=== PATIENT | male | born 1985 | race Hispanic/Latino ===

== ENCOUNTER 2017-08-19 06:10 | Day surgery (SDC) | payer OTHER ==
[2017-08-19] MEDS ORDERED: DIPRIVAN 200 MG/20 ML IV ONE (06:11)
[2017-08-19] MEDS ORDERED: Ketamine HCl 50 MG/ML IJ ONE (06:11)
[2017-08-19] MEDS ORDERED: Lactated Ringers 1,000 ML IV SCH (06:30)
[2017-08-19 08:38] VITALS: O2SAT 100
[2017-08-19 08:39] VITALS: BP 126/78; PULSE 77
--- NOTE | 2017-08-19 10:07 | OP ---
SURGERY DATE/TIME: 08/19/2017 0722 PREOPERATIVE DIAGNOSES: 1) Rectal bleeding. 2) Constipation. POSTOPERATIVE DIAGNOSIS: Normal colon. PROCEDURE: Colonoscopy. SURGEON: Dr. Montgomery. ANESTHESIA: MAC. Medications given by anesthesia department. HISTORY: The patient is a 31 year-old male patient presenting now for colonoscopic evaluation. He reports he has been having problems with rectal bleeding. He reports it has been bright red on the toilet paper when he wipes. He also reports he has having problems with increasing constipation. He has been taking MiraLAX with some improvement. The patient denies any diarrhea. He was adopted. The patient was felt the need to have endoscopic evaluation. He was appraised of the risks of the procedure including the risk of perforation, phlebitis, untoward reaction to medication, bleeding and missed lesions. The patient verbalized his understanding and desired to have the procedure performed. DESCRIPTION OF PROCEDURE: The patient was given the medications by the anesthesia department. He had continuous pulse oximetry, ECG monitoring, intermittent blood pressure monitoring and tidal CO2 monitoring during the examination. He was placed in the left lateral decubitus position. A digital rectal examination was performed and revealed normal anal sphincter tone, no masses and normal prostate. The flexible Olympus pediatric colonoscope was used to intubate the rectum. A view of the colon was developed sequentially to the cecum. Upon insertion and withdrawal, including a retroflex view in the rectum, no mucosal lesions were noted. There were some semisolid stools still left in the right side of the colon. The scope was then removed from the patient who tolerated the procedure well and was sent back to OP recovery in good condition. Prep was noted to be fair.
== END 2017-08-19 08:33 | disposition home or self-care (01) ==
LOC: SDC 06:10
PROVIDERS: ATTEND Family Medicine
PROC: 0DJD8ZZ Inspection of Lower Intestinal Tract, Via Natural or Artificial Opening Endoscopic (ICD-10-PCS; principal; 2017-08-19)
DX: K62.5 Hemorrhage of anus and rectum (principal); K59.00 Constipation, unspecified
CPT/HCPCS: 00810; 82962; 93005; J2704

== ENCOUNTER 2019-06-09 13:44 | Emergency (ER) | payer OTHER ==
[2019-06-09] MEDS ORDERED: Zofran 4 MG/2 ML VIAL ONE (14:16)
[2019-06-09] MEDS ORDERED: MORPHINE SULFATE 4 MG INJ ONE (14:17)
[2019-06-09] MEDS ORDERED: Sodium Chloride 0.9% 1000 ML 1,000 ML ONE (14:17)
--- NOTE | 2019-06-09 14:18 | ERPHSYRPT ---
- History of Present Illness Historian: patient Exam Limitations: no limitations Patient Subjective Stated Complaint: Pt states "Yesterday I had horrible back pain and upper abdominal pain. it went away, today it came back and my back is really hurting." Triage Nursing Assessment: Pt presented alert and oriented X 3, skin pwd. Pt ambulates with an upright steady gait, able to speak in clear full sentences. Pt in no apparent respiratory distress. Physician History: 33 yo presented with 5 days of upper abd/epigastric pain with radiation to back without any aggravating /relieving factors. no associated N/V. Denies any h/o GERD, was seen by PCP yesterday and given famotidine but no relief. Timing/Duration: day(s) (5) Activities at Onset: rest Quality: dullness, sharpness Abdominal Pain Onset Location: epigastric Pain Radiation: back Severity of Pain-Max: moderate Severity of Pain-Current: moderate Modifying Factors: Improves With: nothing Associated Symptoms: denies symptoms Previous symptoms: no prior history Allergies/Adverse Reactions: Sulfa (Sulfonamide Antibiotics) Allergy (Intermediate, Verified 08/19/17 06:31) Hives Home Medications: Famotidine 20 mg PO BID 06/09/19 [History] Methylphenidate HCl [Methylphenidate ER (LA)] 30 mg PO DAILY 06/09/19 [History] risperiDONE [Perseris] 120 mg IM UD 06/09/19 [History] Hx Tetanus, Diphtheria Vaccination/Date Given: Yes Hx Influenza Vaccination/Date Given: No Hx Pneumococcal Vaccination/Date Given: No Immunizations Up to Date: Yes - Review of Systems Constitutional: No Symptoms Eyes: No Symptoms Ears, Nose, & Throat: No Symptoms Respiratory: No Symptoms Cardiac: No Symptoms Abdominal/Gastrointestinal: Abdominal Pain Genitourinary Symptoms: No Symptoms Musculoskeletal: Back Pain Skin: No Symptoms Neurological: No Symptoms Psychological: No Symptoms Endocrine: No Symptoms Hematologic/Lymphatic: No Symptoms Immunological/Allergic: No Symptoms - Past Medical History Pertinent Past Medical History: Yes Neurological History: No Pertinent History ENT History: No Pertinent History Cardiac History: No Pertinent History Respiratory History: No Pertinent History Endocrine Medical History: No Pertinent History Musculoskeletal History: No Pertinent History GI Medical History: No Pertinent History History: No Pertinent History Psycho-Social History: Other Male Reproductive Disorders: No Pertinent History Other Medical History: schizophrenic - Past Surgical History Past Surgical History: Yes Other Surgical History: colonoscopy - Social History Smoking Status: Current every day smoker How long have you smoked: years Exposure to second hand smoke: Yes Drug Use: none Patient Lives Alone: No - Nursing Vital Signs Nursing Vital Signs: Initial Vital Signs Temperature 98.6 F 06/09/19 13:50 Pulse Rate 98 H 06/09/19 13:50 Respiratory Rate 18 06/09/19 13:50 Blood Pressure 138/102 06/09/19 13:50 O2 Sat by Pulse Oximetry 97 06/09/19 13:50 Pain Scale Pain Intensity [Dorsal Back] 9 Pain Intensity 4 - Physical Exam General Appearance: no apparent distress Eye Exam: eyes nml inspection Ears, Nose, Throat Exam: normal ENT inspection Neck Exam: normal inspection, non-tender Respiratory Exam: normal breath sounds, lungs clear, No chest tenderness Cardiovascular Exam: regular rate/rhythm, normal heart sounds Gastrointestinal/Abdomen Exam: soft, normal bowel sounds, tenderness ( epigastric ) Rectal Exam: deferred Back Exam: normal inspection, No CVA tenderness Extremity Exam: normal inspection Neurologic Exam: alert, oriented x 3, cooperative Skin Exam: normal color SpO2 Interpretation: normal SpO2: 97 O2 Delivery: Room Air Ordered Tests: Active Orders 24 hr Category Date Time Status IV Insertion STAT Care 06/09/19 14:09 Active ABDOMEN AND PELVIS W CONTRAST [CT] Stat Exams 06/09/19 14:09 Completed GALLBLADDER [US] Stat Exams 06/09/19 15:23 Completed AMYLASE Stat Lab 06/09/19 14:20 Completed CBC W DIFF Stat Lab 06/09/19 14:20 Completed CMP Stat Lab 06/09/19 14:20 Completed LIPASE Stat Lab 06/09/19 14:20 Completed TROPONIN Q3H Lab 06/09/19 14:20 Completed TROPONIN Q3H Lab 06/09/19 17:30 Ordered TROPONIN Q3H Lab 06/09/19 20:30 Ordered TROPONIN Q3H Lab 06/09/19 23:30 Ordered UA W/RFX UR CULTURE Stat Lab 06/09/19 14:08 Uncollected Medication Summary Discontinued Medications Generic Name Dose Route Start Last Admin Trade Name Freq PRN Reason Stop Dose Admin Sodium Chloride 1,000 mls @ 999 mls/hr 06/09/19 14:09 06/09/19 15:24 Sodium Chloride 0.9% 1000 Ml IV 06/09/19 15:09 Infused .Q1H1M STA Infusion Sodium Chloride Confirm 06/09/19 14:17 Sodium Chloride 0.9% 1000 Ml Administered 06/09/19 14:18 Dose 1,000 mls @ ud .ROUTE .STK-MED ONE Morphine Sulfate 4 mg 06/09/19 14:09 06/09/19 14:22 Morphine Sulfate 4 Mg Inj IV 06/09/19 14:10 4 mg STAT ONE Administration Morphine Sulfate Confirm 06/09/19 14:17 Morphine Sulfate 4 Mg Inj Administered 06/09/19 14:18 Dose 4 mg .ROUTE .STK-MED ONE Ondansetron HCl 4 mg 06/09/19 14:09 06/09/19 14:22 Zofran 4 Mg/2 Ml Vial IV 06/09/19 14:10 4 mg STAT ONE Administration Ondansetron HCl Confirm 06/09/19 14:16 Zofran 4 Mg/2 Ml Vial Administered 06/09/19 14:17 Dose 4 mg .ROUTE .STK-MED ONE Lab/Rad Data: Laboratory Result Diagrams 06/09/19 14:20 06/09/19 14:20 Laboratory Results 06/09/19 06/09/19 06/09/19 Range/Units 14:20 14:20 14:20 WBC 10.9 H (4.0-10.5) K/mm3 RBC 5.34 (4.1-5.6) M/mm3 Hgb 16.1 (12.5-18.0) gm/dl Hct 47.4 (42-50) % MCV 88.8 (78-100) fl MCH 30.1 (26-32) pg MCHC 34.0 (32-36) g/dl RDW 13.4 (11.5-14.0) % Plt Count 300 (150-450) K/mm3 MPV 10.3 H (6-9.5) fl Gran % 70.5 H (36.0-66.0) % Eos # (Auto) 0.16 (0-0.5) Absolute Lymphs (auto) 1.74 (1.0-4.6) Absolute Monos (auto) 1.28 (0.0-1.3) Lymphocytes % 16.0 L (24.0-44.0) % Monocytes % 11.8 (0.0-12.0) % Eosinophils % 1.5 (0.00-5.0) % Basophils % 0.2 (0.0-0.4) % Absolute Granulocytes 7.68 H (1.4-6.9) Basophils # 0.02 (0-0.4) Sodium 141 (137-145) mmol/L Potassium 3.9 (3.5-5.1) mmol/L Chloride 101 (98-107) mmol/L Carbon Dioxide 28 (22-30) mmol/L Anion Gap 16.0 H (5-15) MEQ/L BUN 11 (9-20) mg/dL Creatinine 1.02 (0.66-1.25) mg/dL Estimated GFR > 60.0 ML/MIN Glucose 107 H (74-106) mg/dL Calcium 9.8 (8.4-10.2) mg/dL Total Bilirubin 0.90 (0.2-1.3) mg/dL AST 26 (17-59) U/L ALT 27 (0-50) U/L Alkaline Phosphatase 140 H (38-126) U/L Troponin I < 0.012 (0.000-0.034) ng/mL Serum Total Protein 8.3 H (6.3-8.2) g/dL Albumin 4.5 (3.5-5.0) g/dL Amylase 81 (30-110) U/L Lipase 79 (23-300) U/L - Progress Progress: improved, re-examined Progress Note: 89 years old was evaluated for epigastric pain. He is given IV fluid and morphine x1, and evaluation pain is better. He did not have any vomiting. His white count of 10, normal liver enzymes. I obtained CT abdomen and pelvis with contrast which showed distended gallbladder with cholelithiasis. Ultrasound showed distended gallbladder with questionable gallbladder wall thickening but no pericholecystic fluid but does have a stone closer to the neck. I have discussed with general surgeon on-call, recommended to outpatient followup in the morning. I would give him pain medications to go home. This this plan the patient and family in detail who seem understanding. Discussed signs and symptoms of worsening needing return to ER they seem understanding. 06/09/19 16:43 - Departure Departure Disposition: Home Clinical Impression: Cholelithiasis Qualifiers: Cholelithiasis location: gallbladder Cholecystitis presence: with cholecystitis Cholecystitis acuity: unspecified acuity Biliary obstruction: without biliary obstruction Qualified Code(s): K80.10 - Calculus of gallbladder with chronic cholecystitis without obstruction Condition: Stable Critical Care Time: No Referrals: MICKEY ONEILL [COURTESY STAFF] - Follow Up with PCP (tomorrow morning for re evaluation) Instructions: Gallstones Prescriptions: Hydrocodone/APAP 5/325 [[place] 5/325 mg] 1 each PO Q6H PRN PRN 3 Days #10 tablet MDD 4 PRN Reason: Pain Ondansetron ODT 4 MG [Zofran Odt 4 mg] 4 mg PO Q6H PRN PRN #10 tab.rapdis PRN Reason: Vomiting
[2019-06-09] MEDS: Sodium Chloride 0.9% 1000 ML 1,000 ML IV STA (14:20)
[2019-06-09] MEDS: MORPHINE SULFATE 4 MG INJ IV ONE (14:22)
[2019-06-09] MEDS: Zofran 4 MG/2 ML VIAL IV ONE (14:22)
[2019-06-09 14:37] LABS: Absolute Neutrophil Ct (ANC) 7.68 (1.4-6.9); BASOPHIL % 0.2 % (0.0-0.4); Basophil (Absolute #) 0.02 (0-0.4); Eosinophil % 1.5 % (0.00-5.0); Eosinophil (Absolute #) 0.16 (0-0.5); Hematocrit 47.4 % (42-50); Hemoglobin 16.1 gm/dl (12.5-18.0); Lymphocyte (Absolute #) 1.74 (1.0-4.6); Mean Cell Volume 88.8 fl (78-100); Mean Corpuscular Hemoglobin 30.1 pg (26-32); Mean Platelet Volume 10.3 fl (6-9.5); Monocyte (Absolute #) 1.28 (0.0-1.3); Monocytes % 11.8 % (0.0-12.0); Neutrophil % 70.5 % (36.0-66.0); Platelet Count 300 K/mm3 (150-450); Red Blood Count 5.34 M/mm3 (4.1-5.6); Red Cell Distribution Width 13.4 % (11.5-14.0); White Blood Count 10.9 K/mm3 (4.0-10.5)
[2019-06-09 14:40] LABS: ALBUMIN 4.5 g/dL (3.5-5.0); ALKALINE PHOSPHATASE 140 U/L (38-126); AMYLASE 81 U/L (30-110); BLOOD UREA NITROGEN 11 mg/dL (9-20); CHLORIDE 101 mmol/L (98-107); Calcium 9.8 mg/dL (8.4-10.2); Carbon Dioxide 28 mmol/L (22-30); Creatinine 1 1.02 mg/dL (0.66-1.25); Glucose 107 mg/dL (74-106); LIPASE 79 U/L (23-300); Potassium 3.9 mmol/L (3.5-5.1); SGOT/AST 26 U/L (17-59); SGPT/ALT 27 U/L (0-50); SODIUM 141 mmol/L (137-145); Total Protein 8.3 g/dL (6.3-8.2)
--- NOTE | 2019-06-09 15:16 | XRAY ---
Indication: Abdomen pain 2 weeks. Multiple contiguous axial images obtained through the abdomen and pelvis using 80 cc Isovue 370 contrast only. Comparison: None Lung bases demonstrates minimal bibasilar dependent atelectasis. No infiltrate or effusion. Heart is not enlarged. Noncontrasted stomach and bowel loops appear nonobstructed. Normal appendix. No free fluid/air. Left lower renal calyx demonstrates nonobstructed punctate calculus. Gallbladder abnormality distended with 3.5 cm hypodense stone near the neck of the gallbladder. No abnormal biliary distention. Remaining liver, pancreas, spleen, adrenal glands, kidneys, ureters, bladder, and aorta appear unremarkable. No pathologic retroperitoneal lymphadenopathy. Osseous structures intact. Impression: 1. Abnormally distended gallbladder with 3.5 cm hypodense stone. Gallbladder sonogram may yield further information. 2. Incidental nonobstructing left renal micro-calculus. 3. Remaining CT abdomen/pelvis with contrast exam is negative. CT DI 22.06
--- NOTE | 2019-06-09 16:28 | XRAY ---
Indication: Abdomen pain. Cholelithiasis. Two-dimensional gallbladder sonogram performed. Comparison: None Pancreas not well-seen due to overlying bowel gas. Gallbladder is markedly distended up to 9 cm with sludge and a 2.3 cm stone near the neck of the gallbladder. Borderline gallbladder wall thickening measuring 2.6 mm. No pericholecystic fluid. Common bile duct measures 3.5 mm. No intrahepatic biliary distention. Remaining visualized portions of the liver and right kidney appear sonographically unremarkable. Right kidney measures 9.5 cm in length. Impression: 1. Distended gallbladder with sludge and gallbladder neck stone. Borderline wall thickening without pericholecystic fluid. Rule out chronic cholecystitis. 2. Pancreas not well-seen.
[2019-06-09 16:48] VITALS: O2SAT 97
[2019-06-09 17:31] VITALS: BP 143/94; PULSE 88
[2019-06-09 18:01] LABS: Appearance CLEAR (CLEAR); Bilirubin NEGATIVE (NEGATIVE); Blood NEGATIVE Ery/ul (0-5); Glucose NEGATIVE (NEGATIVE); Ketones SMALL (NEGATIVE); Leukocyte Esterase NEGATIVE (NEGATIVE); Mucus SLIGHT /HPF (NEGATIVE); Nitrite NEGATIVE (NEGATIVE); Protein,Urine Dip NEGATIVE (Negative); Specific Gravity 1.039 (1.005-1.025); Urobilinogen NEGATIVE mg/dL (0-1)
== END 2019-06-09 17:57 | disposition home or self-care (01) ==
LOC: ED 13:44
DX: K80.10 Calculus of gallbladder with chronic cholecystitis without obstruction (principal); R10.13 Epigastric pain; M54.9 Dorsalgia, unspecified; Z79.899 Other long term (current) drug therapy
CPT/HCPCS: 36000; 36415; 74177; 76705; 80053; 81001; 82150; 83690; 84484; 85025; 96360; 96374; 96375; 99284; J2270; J2405

== ENCOUNTER 2022-07-18 07:51 | Emergency (ER) | payer MEDICARE ==
--- NOTE | 2022-07-18 08:00 | ERPHSYRPT ---
- History of Present Illness Time Seen by Provider: 07/18/22 08:00 Source: patient Exam Limitations: no limitations Physician History: This is a 36-year-old male who is a patient of Dr. Serna and has a history of schizophrenia and is being followed for this medical diagnosis by Dr. Brit Madrid. Since July 13, 2022 the patient states he is being weaned off of risperidone. Caplyta has been added to his drug regimen. His drug regimen to help control his schizophrenia includes terbinafine, benztropine, risperidone, and Caplyta. In the last 5 days, the patient states he has had "5 seizures". He had 2 episodes this morning. Since he states he has full recollection of the events. He did not lose bowel or bladder control. He has no headache. He denies any head injury. Patient is a daily smoker of cigarettes. He denies illicit drug use. Timing/Duration: day(s) (5) Severity: mild Character of Deficits: none Deficits: no difficulties Baseline/Normal Cognition: alert oriented x 3 Current Cognition: alert oriented x 3 Baseline Gait: walks w/o assistance Associated Symptoms: seizures Allergies/Adverse Reactions: Sulfa (Sulfonamide Antibiotics) Allergy (Intermediate, Verified 07/18/22 07:55) Hives Home Medications: Benztropine Mesylate 1 tab PO TID PRN 07/18/22 [History] Lumateperone Tosylate [Caplyta] 1 tab PO EVENING MEAL 07/18/22 [History] risperiDONE [Risperidone] 2 mg PO BID 07/18/22 [History] terbinafine HCL [Terbinafine HCl] 1 tab PO DAILY 07/18/22 [History] Hx Tetanus, Diphtheria Vaccination/Date Given: Yes Hx Influenza Vaccination/Date Given: No Hx Pneumococcal Vaccination/Date Given: No Travel Risk - International Travel Have you traveled outside of the country in past 3 weeks: No - Coronavirus Screening Are you exhibiting any of the following symptoms?: No Close contact with a COVID-19 positive Pt in past 14-21 Days: No - Review of Systems Constitutional: No Symptoms Eyes: No Symptoms Ears, Nose, & Throat: No Symptoms Respiratory: No Symptoms Cardiac: No Symptoms Abdominal/Gastrointestinal: No Symptoms Genitourinary Symptoms: No Symptoms Musculoskeletal: No Symptoms Skin: No Symptoms Neurological: Seizure Psychological: No Symptoms Endocrine: No Symptoms Hematologic/Lymphatic: No Symptoms Immunological/Allergic: No Symptoms All Other Systems: Reviewed and Negative - Past Medical History Pertinent Past Medical History: Yes Neurological History: No Pertinent History ENT History: No Pertinent History Cardiac History: No Pertinent History Respiratory History: No Pertinent History Endocrine Medical History: No Pertinent History Musculoskeletal History: No Pertinent History GI Medical History: No Pertinent History History: No Pertinent History Psycho-Social History: Other Male Reproductive Disorders: No Pertinent History Other Medical History: schizophrenic - Past Surgical History Past Surgical History: Yes Other Surgical History: colonoscopy - Social History Smoking Status: Current every day smoker How long have you smoked: years Exposure to second hand smoke: Yes Drug Use: none Patient Lives Alone: No - Nursing Vital Signs Nursing Vital Signs: Initial Vital Signs Temperature 97.2 F 07/18/22 08:00 Pulse Rate 67 07/18/22 08:00 Respiratory Rate 20 07/18/22 08:00 Blood Pressure 135/91 07/18/22 08:00 O2 Sat by Pulse Oximetry 96 07/18/22 08:00 Pain Scale Pain Intensity 0 - Rivera Coma Scale Best Eye Response (Rivera): (4) open spontaneously Best Verbal Response (Rivera): (5) oriented Best Motor Response (Rivera): (6) obeys commands Rivera Total: 15 - Physical Exam General Appearance: no apparent distress, alert, anxiety Eye Exam: bilateral eye: normal inspection, PERRL, EOMI Ears, Nose, Throat Exam: normal ENT inspection, moist mucous membranes Neck Exam: normal inspection, non-tender, supple, full range of motion Respiratory: normal breath sounds, lungs clear, airway intact, No chest tenderness, No respiratory distress Cardiovascular: regular rate/rhythm, normal heart sounds, normal peripheral pul ses Gastrointestinal: soft, normal bowel sounds, No tenderness Rectal Exam: not done Back Exam: normal inspection, normal range of motion, No CVA tenderness, No vertebral tenderness Extremity Exam: normal inspection, normal range of motion, pelvis stable Mental Status: alert, oriented x 3, cooperative editing clerk Exam: normal hearing, normal speech, PERRL, tongue midline Coordination/Gait: normal finger to nose, normal gait, normal cerebellar function Motor/Sensory: no motor deficit, no sensory deficit, no pronator drift Skin Exam: normal color, warm, dry SpO2 Interpretation: normal O2 Delivery: Room Air - Course Nursing assessment & vital signs reviewed: Yes EKG Interpreted by Me: RATE (67), Sinus Rhythm, NORMAL AXIS, NORMAL INTERVALS, NORMAL QRS, NORMAL ST-T, Other (No acute ischemic changes on today's EKG.) Ordered Tests: Active Orders 24 hr Category Date Time Status Financial Legal Assistant STAT Care 07/18/22 08:13 Active Clean Catch Urine Specimen STAT Care 07/18/22 08:12 Active EKG-ER Only STAT Care 07/18/22 08:12 Active IV Insertion STAT Care 07/18/22 08:12 Active Pulse Oximetry (ED) STAT Care 07/18/22 08:12 Active HEAD WITHOUT CONTRAST [CT] Stat Exams 07/18/22 08:12 Completed CBC W DIFF Stat Lab 07/18/22 08:10 Completed CMP Stat Lab 07/18/22 08:10 Completed PROCALCITONIN Stat Lab 07/18/22 08:10 Received UA W/RFX CULTURE Stat Lab 07/18/22 08:18 Completed Urine Triage Profile Stat Lab 07/18/22 08:18 Completed Medication Summary Discontinued Medications Generic Name Dose Route Start Last Admin Trade Name Shireen PRN Reason Stop Dose Admin Sodium Chloride 500 mls @ 500 mls/hr 07/18/22 08:13 07/18/22 09:40 Sodium Chloride 0.9% 500 Ml IV 07/18/22 09:12 Infused .Q1H ONE Infusion Sodium Chloride Confirm 07/18/22 08:17 Sodium Chloride 0.9% 500 Ml Administered 07/18/22 08:18 Dose 500 mls @ ud IV .STK-MED ONE Lorazepam 1 mg 07/18/22 08:12 07/18/22 08:38 Lorazepam 2 Mg/1 Ml 2 Mg Vial IV 07/18/22 08:13 1 mg STAT ONE Administration Lorazepam Confirm 07/18/22 08:18 Lorazepam 2 Mg/1 Ml 2 Mg Vial Administered 07/18/22 08:19 Dose 2 mg .ROUTE .STK-MED ONE Ondansetron HCl 4 mg 07/18/22 08:12 07/18/22 08:38 Ondansetron Hcl 4 Mg/2 Ml Vial IV 07/18/22 08:13 4 mg STAT ONE Administration Ondansetron HCl Confirm 07/18/22 08:17 Ondansetron Hcl 4 Mg/2 Ml Vial Administered 07/18/22 08:18 Dose 4 mg .ROUTE .STK-MED ONE Lab/Rad Data: Laboratory Result Diagrams 07/18/22 08:10 07/18/22 08:10 Laboratory Results 07/18/22 07/18/22 07/18/22 Range/Units 08:18 08:18 08:10 WBC (4.0-10.5) x10^3/uL RBC (4.1-5.6) x10^6/uL Hgb (12.5-18.0) g/dL Hct (42-50) % MCV (78-100) fL MCH (26-32) pg MCHC (32-36) g/dL RDW (11.5-14.0) % Plt Count (150-450) x10^3/uL MPV (7.5-11.0) fL Gran % (36.0-66.0) % Immature Gran % (Auto) (0.00-0.4) % Nucleat RBC Rel Count (0.00-0.1) % Eos # (Auto) (0-0.5) x10^3/uL Immature Gran # (Auto) (0.00-0.03) x10^3u/L Absolute Lymphs (auto) (1.0-4.6) x10^3/uL Absolute Monos (auto) (0.0-1.3) x10^3/uL Absolute Nucleated RBC (0.00-0.01) x10^3u/L Lymphocytes % (24.0-44.0) % Monocytes % (0.0-12.0) % Eosinophils % (0.00-5.0) % Basophils % (0.0-0.4) % Absolute Granulocytes (1.4-6.9) x10^3/uL Basophils # (0-0.4) x10^3/uL Sodium 138 (137-145) mmol/L Potassium 3.9 (3.5-5.1) mmol/L Chloride 106 (98-107) mmol/L Carbon Dioxide 27 (22-30) mmol/L Anion Gap 9.0 (5-15) MEQ/L BUN 17 (9-20) mg/dL Creatinine 1.08 (0.66-1.25) mg/dL Estimated GFR > 60.0 ML/MIN Glucose 107 H (74-106) mg/dL Calcium 8.6 (8.4-10.2) mg/dL Total Bilirubin 0.60 (0.2-1.3) mg/dL AST 34 (17-59) U/L ALT 21 (0-50) U/L Alkaline Phosphatase 108 (38-126) U/L Serum Total Protein 6.9 (6.3-8.2) g/dL Albumin 4.0 (3.5-5.0) g/dL Urinalys Dipstick Clnc MAIN LAB Urine Color YELLOW (YELLOW) Urine Appearance CLEAR (CLEAR) Urine pH 7.0 (5-6) Ur Specific [place] 1.020 (1.005-1.025) POC Urine Protein Conf NEGATIVE (Negative) Urine Ketones NEGATIVE (NEGATIVE) Urine Nitrite NEGATIVE (NEGATIVE) Urine Bilirubin NEGATIVE (NEGATIVE) Urine Urobilinogen 0.2 (0-1) mg/dL Urine Leukocytes NEGATIVE (NEGATIVE) Urine WBC (Auto) 0-2 (0-5) /HPF Urine RBC (Auto) 6-10 A (0-2) /HPF U Epithel Cells (Auto) NONE (FEW) /HPF Urine Bacteria (Auto) NONE (NEGATIVE) /HPF Urine RBC TRACE-INTACT A (0-5) Craig/ul Ur Culture Indicated? NO Urine Glucose NEGATIVE (NEGATIVE) mg/dL Urine Opiates Level NEGATIVE (NEGATIVE) Ur Methadone NEGATIVE (NEGATIVE) Urine Barbiturates NEGATIVE (NEGATIVE) Ur Phencyclidine (PCP) NEGATIVE (NEGATIVE) Urine Amphetamine POSITIVE (NEGATIVE) U Benzodiazepine Level NEGATIVE (NEGATIVE) Urine Cocaine NEGATIVE (NEGATIVE) Urine Marijuana (THC) NEGATIVE (NEGATIVE) 07/18/22 Range/Units 08:10 WBC 5.8 (4.0-10.5) x10^3/uL RBC 4.66 (4.1-5.6) x10^6/uL Hgb 14.0 (12.5-18.0) g/dL Hct 41.9 L (42-50) % MCV 89.9 (78-100) fL MCH 30.0 (26-32) pg MCHC 33.4 (32-36) g/dL RDW 12.9 (11.5-14.0) % Plt Count 300 (150-450) x10^3/uL MPV 9.7 (7.5-11.0) fL Gran % 51.0 (36.0-66.0) % Immature Gran % (Auto) 0.2 (0.00-0.4) % Nucleat RBC Rel Count 0.0 (0.00-0.1) % Eos # (Auto) 0.24 (0-0.5) x10^3/uL Immature Gran # (Auto) 0.01 (0.00-0.03) x10^3u/L Absolute Lymphs (auto) 2.04 (1.0-4.6) x10^3/uL Absolute Monos (auto) 0.49 (0.0-1.3) x10^3/uL Absolute Nucleated RBC 0.00 (0.00-0.01) x10^3u/L Lymphocytes % 35.4 (24.0-44.0) % Monocytes % 8.5 (0.0-12.0) % Eosinophils % 4.2 (0.00-5.0) % Basophils % 0.7 (0.0-0.4) % Absolute Granulocytes 2.94 (1.4-6.9) x10^3/uL Basophils # 0.04 (0-0.4) x10^3/uL Sodium (137-145) mmol/L Potassium (3.5-5.1) mmol/L Chloride (98-107) mmol/L Carbon Dioxide (22-30) mmol/L Anion Gap (5-15) MEQ/L BUN (9-20) mg/dL Creatinine (0.66-1.25) mg/dL Estimated GFR ML/MIN Glucose (74-106) mg/dL Calcium (8.4-10.2) mg/dL Total Bilirubin (0.2-1.3) mg/dL AST (17-59) U/L ALT (0-50) U/L Alkaline Phosphatase (38-126) U/L Serum Total Protein (6.3-8.2) g/dL Albumin (3.5-5.0) g/dL Urinalys Dipstick Clnc Urine Color (YELLOW) Urine Appearance (CLEAR) Urine pH (5-6) Ur Specific [place] (1.005-1.025) POC Urine Protein Conf (Negative) Urine Ketones (NEGATIVE) Urine Nitrite (NEGATIVE) Urine Bilirubin (NEGATIVE) Urine Urobilinogen (0-1) mg/dL Urine Leukocytes (NEGATIVE) Urine WBC (Auto) (0-5) /HPF Urine RBC (Auto) (0-2) /HPF U Epithel Cells (Auto) (FEW) /HPF Urine Bacteria (Auto) (NEGATIVE) /HPF Urine RBC (0-5) Craig/ul Ur Culture Indicated? Urine Glucose (NEGATIVE) mg/dL Urine Opiates Level (NEGATIVE) Ur Methadone (NEGATIVE) Urine Barbiturates (NEGATIVE) Ur Phencyclidine (PCP) (NEGATIVE) Urine Amphetamine (NEGATIVE) U Benzodiazepine Level (NEGATIVE) Urine Cocaine (NEGATIVE) Urine Marijuana (THC) (NEGATIVE) - Progress Progress: unchanged Progress Note: 07/18/22 08:45 CT of head without contrast is normal Counseled pt/family regarding: lab results, diagnosis, need for follow-up, rad results - Departure Departure Disposition: Home Clinical Impression: Medication reaction Condition: Stable Critical Care Time: No Referrals: JUAN M SERNA MD [Primary Care Provider] - Follow up/PCP as directed Additional Instructions: Call the office of your prescribing doctor after discharge this morning and make arrangements for further evaluation, management and instructions.
[2022-07-18] MEDS ORDERED: Ativan 2 MG/1 ML VIAL IV ONE (08:12)
[2022-07-18] MEDS ORDERED: Zofran 4 MG/2 ML VIAL IV ONE (08:12)
[2022-07-18] MEDS ORDERED: Sodium Chloride 0.9% 500 ML 500 ML IV ONE ×2 (08:13→08:17)
[2022-07-18] MEDS ORDERED: Zofran 4 MG/2 ML VIAL ONE (08:17)
[2022-07-18] MEDS ORDERED: Ativan 2 MG/1 ML VIAL ONE (08:18)
[2022-07-18 08:30] LABS: Absolute Neutrophil Ct (ANC) 2.94 x10^3/uL (1.4-6.9); Basophil (Absolute #) 0.04 x10^3/uL (0-0.4); Eosinophil % 4.2 % (0.00-5.0); Eosinophil (Absolute #) 0.24 x10^3/uL (0-0.5); Hematocrit 41.9 % (42-50); Lymphocyte (Absolute #) 2.04 x10^3/uL (1.0-4.6); Lymphocytes % 35.4 % (24.0-44.0); Mean Cell Volume 89.9 fL (78-100); Mean Corpuscular Hgb Concent. 33.4 g/dL (32-36); Mean Platelet Volume 9.7 fL (7.5-11.0); Monocyte (Absolute #) 0.49 x10^3/uL (0.0-1.3); Monocytes % 8.5 % (0.0-12.0); Platelet Count 300 x10^3/uL (150-450); Red Blood Count 4.66 x10^6/uL (4.1-5.6); Red Cell Distribution Width 12.9 % (11.5-14.0); White Blood Count 5.8 x10^3/uL (4.0-10.5)
--- NOTE | 2022-07-18 08:40 | XRAY ---
Indication: Seizures. Multiple contiguous axial images obtained through the head without contrast. Comparison: None Normal appearing brain parenchyma, ventricles, and bony calvarium. Visualized paranasal sinuses and mastoid air cells are clear. Impression: Normal CT head without contrast exam.
[2022-07-18 08:43] LABS: ALKALINE PHOSPHATASE 108 U/L (38-126); BLOOD UREA NITROGEN 17 mg/dL (9-20); CHLORIDE 106 mmol/L (98-107); Calcium 8.6 mg/dL (8.4-10.2); Carbon Dioxide 27 mmol/L (22-30); Creatinine 1 1.08 mg/dL (0.66-1.25); EST GLOMERULAR FILTRATION RATE > 60.0 ML/MIN; Glucose 107 mg/dL (74-106); Potassium 3.9 mmol/L (3.5-5.1); SGOT/AST 34 U/L (17-59); SGPT/ALT 21 U/L (0-50); SODIUM 138 mmol/L (137-145); Total Protein 6.9 g/dL (6.3-8.2)
[2022-07-18 08:50] LABS: Appearance CLEAR (CLEAR); Bilirubin NEGATIVE (NEGATIVE); Dipstick done @ ? MAIN LAB; Glucose NEGATIVE (NEGATIVE); Ketones NEGATIVE (NEGATIVE); Nitrite NEGATIVE (NEGATIVE); Protein,Urine Dip NEGATIVE (Negative); RBC TRACE-INTACT Ery/ul (0-5); Urobilinogen 0.2 mg/dL (0-1)
[2022-07-18 08:55] LABS: Urine Cultured Indicated? NO; WBC 0-2 /HPF (0-5)
[2022-07-18 08:58] LABS: Barbiturate,Urine NEGATIVE (NEGATIVE); Benzodiazepine,Urine NEGATIVE (NEGATIVE); Cocaine,Urine NEGATIVE (NEGATIVE); Methadone,Urine NEGATIVE (NEGATIVE); Opiate,Urine NEGATIVE (NEGATIVE); PCP,Urine NEGATIVE (NEGATIVE); THC,Urine NEGATIVE (NEGATIVE)
[2022-07-18 09:58] LABS: Amphetamine,Urine POSITIVE (NEGATIVE)
[2022-07-18 10:21] VITALS: BP 117/78; PULSE 62; O2SAT 98
== END 2022-07-18 10:27 | disposition home or self-care (01) ==
LOC: ED 07:51
DX: R56.9 Unspecified convulsions (principal); T50.995A Adverse effect of other drugs, medicaments and biological substances, initial encounter; F20.9 Schizophrenia, unspecified; Z72.0 Tobacco use; Z79.899 Other long term (current) drug therapy
CPT/HCPCS: 36000; 36415; 70450; 80053; 80307; 81015; 84145; 85025; 93005; 93041; 94760; 96374; 96375; 99284; J2060; J2405